=== PATIENT | female | born 1955 | race Caucasian/White ===

== ENCOUNTER → 2020-12-07 12:11 | Outpatient (CLI) | payer OTHER, SELFPAY ==
--- NOTE | 2020-12-07 12:15 | DI.MRI.S_ITS ---
PROCEDURE: MR HEAD/BRAIN WO CON INDICATIONS: Benign neoplasm of cerebral meninges TECHNIQUE: Non-contrast axial T1 spin echo, axial T2 fast spin echo, sagittal and axial FLAIR, coronal T2 fast spin echo, axial gradient echo, axial diffusion and ADC through the brain. COMPARISON: Outside Film, MR, MR BRAIN WITH/WITHOUT CONTRAST, 02/16/2018, 16:41. Outside Film, MR, MR BRAIN WITH/WITHOUT CONTRAST, 04/02/2018, 17:10. [facility], MR, MR BRAIN WITH/WITHOUT CONTRAST, 11/17/2018, 15:20. FINDINGS: Image quality: Excellent. CSF spaces: Ventricles appear symmetric in size and shape. Basal cisterns are patent. No extra-axial fluid collections. Brain: No acute intracranial bleeds or mass effects. Resection cavity within the right anterior frontal lobe is present, as before, with moderate surrounding ill-defined FLAIR signal elevation, consistent with postsurgical sequelae, as before. There is a 4 mm diameter low T2 intensity focus within the peripontine cistern at the medial aspect of the left internal auditory canal, as before. There is cerebral volume loss for age. There are periventricular and deep white matter chronic small vessel ischemic changes. Brainstem appears normal. Diffusion-weighted images show no acute ischemic insults. No chronic ischemic insults. Normal intravascular flow voids are present. Skull and face: Right frontal craniotomy has been performed, as before. Calvarial bone marrow is otherwise normal in signal. Orbits are normal. Sinuses: Sinuses and mastoids are clear. IMPRESSION: 1. No evidence recurrent meningioma following right frontal resection. Expected postsurgical sequelae are present. 2. Indeterminate low T2 intensity focus at the medial aspect of the left internal auditory canal, possibly indicating a small meningioma versus aneurysm. Postcontrast enhanced brain MRI (including high-resolution coronal and axial postcontrast sequences through the internal auditory canals) is recommended for further assessment. Dictated by: Steve Qiu M.D. on 12/07/2020 at 13:35 Approved by: Steev Qiu M.D. on 12/07/2020 at 13:42
== END ==
PROVIDERS: PCP Family Medicine; Referring Provider Family Medicine; Visit Provider Family Medicine
DX: D32.0 Benign neoplasm of cerebral meninges (principal)
CPT/HCPCS: 70551

== ENCOUNTER → 2021-05-04 09:46 | Outpatient (CLI) | payer OTHER, SELFPAY ==
[2021-05-04 10:34] LABS: Hematocrit 41.2 % (36-46); Hemoglobin 13.6 g/dL (12.0-16.0); Mean Corpuscular Hemoglobin 28.8 PG (26-34); Mean Corpuscular Volume 87.3 fL (80-100); Platelet Count 246 X10^3/uL (150-400); Red Blood Cell Count 4.72 X10^6/uL (4.0-5.2); Red Cell Distribution Width 13.5 % (11.6-14.8); White Blood Cell Count 5.8 X10^3/uL (4.5-11.0)
[2021-05-04 10:49] LABS: Hemoglobin A1C% w Est Avg Glu 5.5 % (4.0-6.0)
[2021-05-04 11:19] LABS: Alanine Aminotransferase 25 IU/L (<35); Albumin 4.2 g/dL (3.5-5.0); Albumin Globulin Ratio 1.4 (1.0-2.8); Alkaline Phosphatase 79 U/L (38-126); Aspartate Aminotransferase 25 IU/L (14-36); BUN Creatinine Ratio 29.5 (6-22); Bilirubin Total 0.4 mg/dL (0.2-1.3); Blood Urea Nitrogen 18 mg/dL (7-17); Calcium 9.3 mg/dL (8.4-10.2); Carbon Dioxide 29 mmol/L (22-32); Chloride 102 mmol/L (98-107); Cholesterol 217 mg/dL (140-199); Estimated Glomerular Filt Rate > 60.0 mL/min (>60); Globulin 2.9 g/dL (1.7-4.1); Glucose 90 mg/dL (80-110); HDL Cholesterol 59 mg/dL (40-60); HEMOLYSIS < 15 (0-50); LDL Cholesterol Calculated 128 mg/dL (<100); Potassium 4.2 mmol/L (3.4-5.1); Sodium 138 mmol/L (137-145); Total Protein 7.1 g/dL (6.3-8.2); Triglycerides 151 mg/dL (35-150)
[2021-05-04 11:48] LABS: TSH w/ Reflex to FT4 2.14 uIU/mL (0.47-4.68)
[2021-05-08 16:06] LABS: Levetiracetam Keppra 16.4 ug/mL (10.0-40.0)
== END ==
PROVIDERS: PCP Registered Nurse Diabetes Educator; Referring Provider Registered Nurse Diabetes Educator; Visit Provider Registered Nurse Diabetes Educator
DX: G40.909 Epilepsy, unspecified, not intractable, without status epilepticus (principal); I10 Essential (primary) hypertension; Z86.32 Personal history of gestational diabetes
CPT/HCPCS: 36415; 80053; 80061; 80177; 83036; 84443; 85027

== ENCOUNTER → 2021-05-19 12:03 | Outpatient (CLI) | payer OTHER, SELFPAY ==
--- NOTE | 2021-05-19 12:04 | DI.MRI.S_ITS ---
PROCEDURE: MR BRAIN (IAC) WWO CON INDICATIONS: further eval finding at medial aspect L IAC on 12/07/2020 MRI TECHNIQUE: Noncontrast sagittal T1 spin echo, axial FLAIR, axial gradient echo, axial diffusion and ADC through the brain. Axial thin-slice 3D CISS, coronal TruFISP, axial T1 spin echo with fat saturation through the internal auditory canals. After the administration of contrast, thin slice axial and coronal T1 spin echo with fat saturation through the internal auditory canals, and axial T1 spin echo with fat saturation through the brain. COMPARISON: [facility], MR, MR HEAD/BRAIN WO CON, 12/07/2020, 12:23. Outside Film, MR, MR BRAIN WITH/WITHOUT CONTRAST, 02/16/2018, 16:41. Outside Film, CT, CT CHEST ABDOMEN PELVIS WITH CONTRAST, 02/16/2018, 18:03. Outside Film, MR, MR BRAIN WITH/WITHOUT CONTRAST, 04/02/2018, 17:10. FINDINGS: Internal Auditory Canals: Small left cisternal indeterminate nodule on the prior study 12/07/2020 corresponds with a small overhanging bony overgrowth of the left temporal bone at the porous acousticus without enhancement or change from prior exams dating back to 2018. Otherwise, the cisternal and intracanalicular components of the seventh and eighth cranial nerve complexes are unremarkable. No abnormal enhancement present. The cisternal fifth cranial nerves, Meckel's cave and the hypoglossal canals are all unremarkable. No suspicious vascular loops identified. The inner ear structures including the cochlea, vestibule and semicircular canals are within normal limits. Skull Base: The bony sella, pituitary gland and infundibulum unremarkable. Mastoids are unremarkable as visualized without effusion. Brain and Meninges: Right middle frontal gyrus encephalomalacia and gliosis again noted, stable from the prior. No evidence of recurrent or residual right frontal meningioma. The diffusion sequence is normal without evidence of acute infarct. There is a normal cerebral and cerebellar volume present. Basal cisterns are clear. Susceptibility weighted imaging shows no evidence of intracranial hemorrhage. Ventricles: Appropriate in size and position. No hydrocephalus. Scalp and Calvarium: Right frontal craniotomy noted. Remaining calvarium has an appropriate marrow signal. Paranasal Sinuses: Visualized sinuses are clear. Mastoids: Appropriately aerated. No evidence of mastoid effusion. Orbits: The orbits, globes, optic nerves and ocular muscles unremarkable. Both lacrimal glands are normal. IMPRESSION: 1. Previously described indeterminate nodule appears to correspond with a small nonenhancing left temporal bony overgrowth arising from the superior lip of the porous acusticus. Consider follow-up CT temporal bone to assess bony structure. Differential would include osteoma versus densely calcified nonenhancing meningioma Approved by: Jaxson Koo M.D. on 05/19/2021 at 14:46 . 2. Right frontal meningioma resection without evidence of recurrent or residual disease.
== END ==
PROVIDERS: PCP Registered Nurse Diabetes Educator; Referring Provider Registered Nurse Diabetes Educator; Visit Provider Registered Nurse Diabetes Educator
DX: R90.89 Other abnormal findings on diagnostic imaging of central nervous system (principal); G40.909 Epilepsy, unspecified, not intractable, without status epilepticus; D32.0 Benign neoplasm of cerebral meninges
CPT/HCPCS: 70553

== ENCOUNTER → 2021-08-26 12:23 | Outpatient (CLI) | payer OTHER, SELFPAY ==
--- NOTE | 2021-08-26 12:24 | DI.CT.S_ITS ---
PROCEDURE: CT MASTOID TEMPORAL INDICATIONS: Abnormal MRI COMPARISON: [facility], MR, MR HEAD/BRAIN WO CON, 12/07/2020, 12:23. [facility], MR, MR BRAIN (IAC) WWO CON, 05/19/2021, 12:47. TECHNIQUE: Noncontrast 0.6 mm thick direct axial and coronal sections acquired through each temporal bone separately. FINDINGS: Image quality: There is artifact associated with the metallic hardware. RIGHT: External auditory canal: Canal has a normal appearance. Middle ear: The middle ear structures, including the ossicles and tympanic membrane, appear normal. No abnormal fluid or soft tissue density. Inner ear: Inner ear is normally formed and appears unremarkable. Facial nerve appears normal throughout is course. Mastoids: Mastoid air cells are clear. LEFT: External auditory canal: Canal has a normal appearance. Middle ear: The middle ear structures, including the ossicles and tympanic membrane, appear normal. No abnormal fluid or soft tissue density. Inner ear: Inner ear is normally formed and appears unremarkable. Facial nerve appears normal throughout its course. Mastoids: Mastoid air cells are clear. MISCELLANEOUS: Visualized surrounding bones appear unremarkable. Visualized intracranial structures, including the cerebellopontine angle cisterns, appear normal. In this patient with this given history, scrutiny is given to the medial aspect of the left internal auditory canal. At this site, there is abnormal chronic appearing bony overgrowth seen, which is best demonstrated on series 5, image 42. There is associated narrowing of the medial aspect of the internal auditory canal. This corresponds to the uniformly dark signal seen on the prior MRI examination. This process can also be seen on the right side, yet is less severe. Craniotomy changes are seen on the environmental services tech image. IMPRESSION: Abnormal bony overgrowth can be seen along the superior medial aspect of the left internal auditory canal, with associated narrowing of the medial aspect of the left internal auditory canal. This process also seen on the right, yet it is less severe. Dictated by: Sriram Costa M.D. on 08/26/2021 at 12:21 Approved by: Sriram Costa M.D. on 08/26/2021 at 12:28
== END ==
PROVIDERS: PCP Registered Nurse Diabetes Educator; Referring Provider Registered Nurse Diabetes Educator; Visit Provider Registered Nurse Diabetes Educator
DX: R93.89 Abnormal findings on diagnostic imaging of other specified body structures (principal); Z86.03 Personal history of neoplasm of uncertain behavior; Z98.890 Other specified postprocedural states
CPT/HCPCS: 70480

== ENCOUNTER → 2022-02-04 12:47 | Outpatient (CLI) | payer OTHER, SELFPAY ==
--- NOTE | 2022-02-04 | DI.MG.S_ITS ---
BILATERAL DIGITAL SCREENING MAMMOGRAM 3D/2D WITH CAD WITH AUGMENTATION: 02/04/2022 CLINICAL: Routine screening. Comparison is made to exams dated: 07/21/2017 mammogram, 04/21/2017 mammogram, and 04/19/2016 mammogram - outside location. The tissue of both breasts is predominantly fatty. Current study was also evaluated with a Computer Aided Detection (CAD) system. No significant masses, calcifications, or other findings are seen in either breast. There has been no significant interval change. IMPRESSION: NEGATIVE There is no mammographic evidence of malignancy. A 1 year screening mammogram is recommended. Based on the Tyrer Cuzick model (a risk assessment model) the patient's lifetime risk is 4.0% and her 10 year risk is 1.9%. According to the ACR, ACS, and NCCN guidelines, an annual breast MRI exam along with mammogram is recommended if the patient's lifetime risk is 20% or greater. This exam was interpreted at Station ID: [id number]. NOTE: For mammograms, a report in lay terms will be sent to the patient. Approximately 15% of breast malignancies will not be visualized mammographically. In the management of a palpable breast mass, a negative mammogram must not discourage biopsy of a clinically suspicious lesion. Electronically Signed By: Toni Harrison M.D., jr/viky:02/04/2022 13:30:59 letter sent: Normal Exam ACR BI-RADS Category 1: Negative 3341F
== END ==
PROVIDERS: PCP Registered Nurse Diabetes Educator; Referring Provider Registered Nurse Diabetes Educator; Visit Provider Registered Nurse Diabetes Educator
DX: Z12.31 Encounter for screening mammogram for malignant neoplasm of breast (principal)
CPT/HCPCS: 77063; 77067

== ENCOUNTER → 2022-06-06 10:28 | Outpatient (CLI) | payer OTHER, SELFPAY ==
[2022-06-06 11:19] LABS: Hematocrit 40.8 % (36-46); Hemoglobin 13.6 g/dL (12.0-16.0); Mean Corpuscular HGB Conc 33.4 % (30-36); Mean Corpuscular Hemoglobin 28.7 PG (26-34); Platelet Count 274 X10^3/uL (150-400); Red Blood Cell Count 4.74 X10^6/uL (4.0-5.2); Red Cell Distribution Width 13.6 % (11.6-14.8); White Blood Cell Count 6.4 X10^3/uL (4.5-11.0)
[2022-06-06 11:47] LABS: Alanine Aminotransferase 30 IU/L (<35); Albumin 4.1 g/dL (3.5-5.0); Albumin Globulin Ratio 1.4 (1.0-2.8); Alkaline Phosphatase 103 U/L (38-126); Aspartate Aminotransferase 23 IU/L (14-36); BUN Creatinine Ratio 34.4 (6-22); Bilirubin Total 0.4 mg/dL (0.2-1.3); Blood Urea Nitrogen 21 mg/dL (7-17); Calcium 9.1 mg/dL (8.4-10.2); Carbon Dioxide 27 mmol/L (22-32); Chloride 102 mmol/L (98-107); Cholesterol 209 mg/dL (140-199); Estimated Glomerular Filt Rate > 60 mL/min (>60); Globulin 2.9 g/dL (1.7-4.1); Glucose 96 mg/dL (80-110); HDL Cholesterol 57 mg/dL (40-60); HEMOLYSIS < 15 (0-50); LDL Cholesterol Calculated 128 mg/dL (<100); Potassium 4.1 mmol/L (3.4-5.1); Sodium 138 mmol/L (137-145); Triglycerides 121 mg/dL (35-150)
[2022-06-06 12:13] LABS: TSH w/ Reflex to FT4 1.03 uIU/mL (0.47-4.68)
[2022-06-08 16:40] LABS: Levetiracetam Keppra 35.7 ug/mL (10.0-40.0)
== END ==
PROVIDERS: PCP Registered Nurse Diabetes Educator; Referring Provider Registered Nurse Diabetes Educator; Visit Provider Registered Nurse Diabetes Educator
DX: I10 Essential (primary) hypertension (principal); E78.5 Hyperlipidemia, unspecified; G40.909 Epilepsy, unspecified, not intractable, without status epilepticus
CPT/HCPCS: 36415; 80053; 80061; 80177; 84443; 85027

== ENCOUNTER → 2022-07-26 12:08 | Outpatient (CLI) | payer OTHER, SELFPAY ==
--- NOTE | 2022-07-26 | DI.MRI.S_ITS ---
PROCEDURE: MR SHOULDER RT WO CON INDICATIONS: Pain in right shoulder TECHNIQUE: Noncontrast oblique coronal T2 fast spin echo with fat saturation, oblique sagittal T1 spin echo and T2 fast spin echo with fat saturation, axial T1 spin echo and T2 fast spin echo with fat saturation through the shoulder. COMPARISON: None. FINDINGS: Image quality: Excellent. Rotator cuff: There is full-thickness tear of the superior fibers of the distal subscapularis tendon at the humeral attachment. There is mild subscapularis muscle atrophy. There is partial-thickness tear of the distal supraspinatus tendon and associated moderate tendinosis. No supraspinatus muscle atrophy. There is mild infraspinatus tendinosis without tendon tear. Bones and bursae: No bone marrow contusions or fractures. There is moderate acromioclavicular and glenohumeral joint degeneration. The acromion demonstrates conventional anatomy, without an os acromiale. No pathologic subacromial-subdeltoid or subcoracoid bursal fluid is present. Capsule and soft tissues: There is degenerative fraying of the superior labrum. The long head of the biceps tendon demonstrates normal location and morphology. The rotator interval appears normal, without fibrosis. The coracohumeral ligament is normal in thickness. IMPRESSION: 1. Full-thickness tear of the subscapularis tendon. There is mild subscapularis muscle atrophy. 2. Partial-thickness tear of the distal supraspinatus tendon and moderate tendinosis. 3. Mild infraspinatus tendinosis. 4. Moderate acromioclavicular and glenohumeral joint degeneration. 5. Degenerative superior labral fraying. Dictated by: Wilberto Eaton M.D. on 07/27/2022 at 7:32 Approved by: Wilberto Eaton M.D. on 07/27/2022 at 14:18
== END ==
PROVIDERS: PCP Registered Nurse Diabetes Educator; Referring Provider Orthopaedic Surgery; Visit Provider Orthopaedic Surgery
DX: M75.121 Complete rotator cuff tear or rupture of right shoulder, not specified as traumatic (principal); M19.011 Primary osteoarthritis, right shoulder; M25.511 Pain in right shoulder
CPT/HCPCS: 73221

== ENCOUNTER → 2023-10-03 13:06 | Outpatient (CLI) | payer OTHER, SELFPAY ==
[2023-10-03 14:03] LABS: Hemoglobin 13.9 g/dL (12.0-16.0); Mean Corpuscular HGB Conc 33.1 % (30-36); Mean Corpuscular Hemoglobin 28.3 PG (26-34); Mean Corpuscular Volume 85.5 fL (80-100); Platelet Count 276 X10^3/uL (150-400); Red Blood Cell Count 4.91 X10^6/uL (4.0-5.2); White Blood Cell Count 6.3 X10^3/uL (4.5-11.0)
[2023-10-03 14:27] LABS: Alanine Aminotransferase 24 IU/L (<35); Albumin 4.4 g/dL (3.5-5.0); Albumin Globulin Ratio 1.3 (1.0-2.8); Alkaline Phosphatase 95 U/L (38-126); Aspartate Aminotransferase 26 IU/L (14-36); BUN Creatinine Ratio 26.3 (6-22); Bilirubin Total 0.7 mg/dL (0.2-1.3); Blood Urea Nitrogen 20 mg/dL (7-17); Calcium 9.4 mg/dL (8.4-10.2); Carbon Dioxide 29 mmol/L (22-32); Chloride 104 mmol/L (98-107); Cholesterol 218 mg/dL (140-199); Estimated Glomerular Filt Rate > 60 mL/min (>60); Globulin 3.4 g/dL (1.7-4.1); Glucose 93 mg/dL (80-110); HDL Cholesterol 52 mg/dL (40-60); HEMOLYSIS < 15 (0-50); LDL Cholesterol Calculated 139 mg/dL (<100); Potassium 3.7 mmol/L (3.4-5.1); Sodium 139 mmol/L (137-145); Total Protein 7.8 g/dL (6.3-8.2); Triglycerides 134 mg/dL (35-150)
[2023-10-03 14:56] LABS: TSH w/ Reflex to FT4 1.84 uIU/mL (0.47-4.68)
[2023-10-06 11:19] LABS: Levetiracetam Keppra 28.2 ug/mL (10.0-40.0)
== END ==
PROVIDERS: PCP Registered Nurse Diabetes Educator; Referring Provider Registered Nurse Diabetes Educator; Visit Provider Registered Nurse Diabetes Educator
DX: Z00.00 Encounter for general adult medical examination without abnormal findings (principal); I10 Essential (primary) hypertension; G40.909 Epilepsy, unspecified, not intractable, without status epilepticus
CPT/HCPCS: 36415; 80053; 80061; 80177; 84443; 85027

== ENCOUNTER → 2023-11-15 14:22 | Outpatient (CLI) | payer OTHER, SELFPAY ==
--- NOTE | 2023-11-15 | DI.MG.S_ITS ---
BILATERAL DIGITAL SCREENING MAMMOGRAM 3D/2D WITH CAD WITH AUGMENTATION: 11/15/2023 CLINICAL: Routine screening. Comparison is made to exams dated: 02/04/2022 mammogram - [facility], 04/21/2017 mammogram, and 04/19/2016 mammogram - outside location. There are scattered areas of fibroglandular density in both breasts (category b / 25%-50% glandular tissue). Current study was also evaluated with a Computer Aided Detection (CAD) system. Bilateral breast implants are stable. No significant masses, calcifications, or other findings are seen in either breast. There has been no significant interval change. IMPRESSION: NEGATIVE There is no mammographic evidence of malignancy. A 1 year screening mammogram is recommended. Based on the Tyrer Cuzick model (a risk assessment model) the patient's lifetime risk is 5.5% and her 10 year risk is 2.9%. According to the ACR, ACS, and NCCN guidelines, an annual breast MRI exam along with mammogram is recommended if the patient's lifetime risk is 20% or greater. This exam was interpreted at Station ID: [id number]. NOTE: For mammograms, a report in lay terms will be sent to the patient. Approximately 15% of breast malignancies will not be visualized mammographically. In the management of a palpable breast mass, a negative mammogram must not discourage biopsy of a clinically suspicious lesion. Electronically Signed By: Bambi schwarz/viky:11/15/2023 16:04:11 letter sent: Normal Exam ACR BI-RADS Category 1: Negative [id number]
--- NOTE | 2023-11-15 14:23 | DI.RAD.S_ITS ---
PROCEDURE: XR DEXA AXIAL SKELETON INDICATIONS: Risk for osteoporosis, evaluate COMPARISON: None. FINDINGS: Lumbar Spine: Bone mineral density 1.299 g/cm2, T score 2.3. Left Hip: Bone mineral density 1.088 g/cm2, T score 1.2. Left Femoral Neck: Bone mineral density 0.936 g/cm2, T score 0.8. Right Hip: Bone mineral density 1.062 g/cm2, T score 1.0. Right Femoral Neck: Bone mineral density 0.914 g/cm2, T score 0.6. Fracture Risk Calculation (when applicable): FRAX not provided due to bone density within normal limits. (T score greater or equal to -1.0 to: NORMAL) (T score from -1.1 to -2.4: OSTEOPENIA) (T score less than or equal to -2.5: OSTEOPOROSIS) IMPRESSION: Bone mineral density is within normal limits. Follow-up guidelines as follows: Osteoporosis: Consider a repeat DEXA and Vertebral Fracture Assessment (VFA) exam in 2 years or sooner if medically necessary, to reassess this patient's status. Osteopenia: Consider a repeat DEXA in 2-3 years to reassess this patient's status, or if there is a new clinical indication. Normal: Consider a repeat DEXA in 5 years or sooner, or if there is a new clinical indication. Dictated by: Pedro Bruce M.D. on 11/15/2023 at 22:31 Approved by: Pedro Bruce M.D. on 11/15/2023 at 22:32
== END ==
LOC: RAD 14:22
PROVIDERS: PCP Registered Nurse Diabetes Educator; Referring Provider Registered Nurse Diabetes Educator; Visit Provider Registered Nurse Diabetes Educator
DX: Z12.31 Encounter for screening mammogram for malignant neoplasm of breast; Z78.0 Asymptomatic menopausal state; R92.323 Mammographic fibroglandular density, bilateral breasts
CPT/HCPCS: 77063; 77067; 77080

== ENCOUNTER → 2023-11-21 15:41 | Outpatient (CLI) | payer OTHER, SELFPAY ==
--- NOTE | 2023-11-21 15:42 | DI.RAD.S_ITS ---
PROCEDURE: XR FOOT RT MIN 3V INDICATIONS: chronic pain around posterior and medial heel TECHNIQUE: 3 views of the foot were acquired. COMPARISON: None. FINDINGS: Bones: No fractures or dislocations. No suspicious bony lesions. Plantar and dorsal calcaneal enthesophytes. Soft tissues: No tibiotalar joint effusion. Achilles tendon appears normal. IMPRESSION: Plantar and dorsal calcaneal enthesophytes. Dictated by: Chandler Wang M.D. on 11/22/2023 at 10:47 Approved by: Chandler Wang M.D. on 11/22/2023 at 10:48
== END ==
PROVIDERS: PCP Registered Nurse Diabetes Educator; Referring Provider Physician Assistant; Visit Provider Physician Assistant
DX: M79.671 Pain in right foot (principal); M77.31 Calcaneal spur, right foot
CPT/HCPCS: 73630

== ENCOUNTER → 2023-12-13 12:30 | Outpatient (CLI) | payer OTHER, SELFPAY ==
--- NOTE | 2023-12-13 12:31 | DI.MRI.S_ITS ---
PROCEDURE: MR HEAD/BRAIN WO/W CON INDICATIONS: Sixth [abducent] nerve palsy, right eye TECHNIQUE: Noncontrast axial T1 spin echo, axial T2 fast spin echo, sagittal and axial FLAIR, coronal T2 fast spin echo, axial gradient echo, axial diffusion and ADC through the brain. After the administration of contrast, axial and coronal and sagittal 3D VIBE or T1 spin echo with fat saturation through the brain. COMPARISON: None. FINDINGS: Image quality: Excellent. CSF Spaces: Basal cisterns are patent. No extra-axial fluid collections. Ventricles are normal in size and shape. Brain: Encephalomalacia within the right frontal lobe from prior meningioma resection. No evidence of residual or recurrent meningioma. No midline shift. No intracranial bleeds or masses. No abnormal intracranial enhancement. The brainstem appears normal. Diffusion-weighted images demonstrate no acute infarct. No chronic ischemic insults. Normal intravascular flow voids are present. Skull and face: Right frontal craniotomy changes. Calvarial marrow is normal in signal. Orbits appear normal. Sinuses: Sinuses and mastoids appear clear. IMPRESSION: 1. No cause for patient's symptoms is identified. The orbits are unremarkable. While this exam is not tailored for the evaluation of the 6 cranial nerve, no masses or other abnormalities are identified within the region of the 6 nerve. 2. Postsurgical changes from right craniotomy for meningioma resection. No evidence of residual or recurrent meningioma. Of residual or recurrent meningioma. 3. No acute intracranial abnormalities. Dictated by: Erick Drummond M.D. on 12/13/2023 at 14:45 Approved by: Erick Drummond M.D. on 12/13/2023 at 14:53
== END ==
PROVIDERS: PCP Registered Nurse Diabetes Educator; Referring Provider Ophthalmology; Visit Provider Ophthalmology
DX: H49.21 Sixth [abducent] nerve palsy, right eye (principal); G93.89 Other specified disorders of brain; G40.909 Epilepsy, unspecified, not intractable, without status epilepticus; M76.61 Achilles tendinitis, right leg; M54.59 Other low back pain; Z98.890 Other specified postprocedural states
CPT/HCPCS: 70553; 76882; 99214; A9579